=== PATIENT | female | born 1945 | race Caucasian/White ===

== ENCOUNTER → 2019-07-03 | Outpatient (CLI) | payer MEDICARE, OTHER ==
[~2019-07-03] MED LIST: Bupropion Xl150 MG PO; CARV3.125 PO; Cleocin HCl150 MG PO; IRON150C PO; LORA1 PO; MORP15ER PO; VITAMIN D-32000 UNI1 PO
[2019-07-03 15:49] LABS: Bilirubin, Urine Neg (Neg); Blood, Urine 2+ (Neg); Glucose Qualitative, Urine 1+ (Neg); Ketones, Urine Neg (Neg); Leukocyte Esterase, Urine 3+ (Neg); Nitrite, Urine Pos (Neg); Protein, Urine 1+ (Neg); Specific Gravity, Urine 1.015 (1.003-1.022); Urobilinogen, Urine NORM (Normal)
[2019-07-03 16:09] LABS: Appearance, Urine Cloudy (Clear); Color, Urine Yellow (P-Yellow); White Blood Cells, Urine TNTC /hpf (0-5)
[2019-07-03 16:10] LABS: Bacteria Many /hpf; Renal Epithelial Few /hpf (0-Rare); Squamous Epithelial Cells Few /hpf (Few); Transitional Epithelial Cells Few /hpf (0-Rare)
== END | disposition home or self-care (01) ==
LOC: LAB 12:55 → LAB SHORT 12:55
PROVIDERS: Nurse Practitioner Family
DX: N39.0 Urinary tract infection, site not specified (principal)
CPT/HCPCS: 81001; 87077; 87086; 87186

== ENCOUNTER → 2020-04-24 | Outpatient (CLI) | payer MEDICARE, OTHER ==
[~2020-04-24] MED LIST changes: +ALBU2.5V5; +ALBU90OI; +ATORVASTATIN CA80 M1 PO; +Aspir 8181 MG PO; +FURO20 PO; +METF500 PO; +MORP30 PO; +MORPHINE PO; +OXYC5 PO; +PANTOPRAZOLE SO40 M1 PO; +PRINIVIL5 M1 PO; +SALM50IP INH; +SERT25 PO
[2020-04-25 17:26] LABS: Appearance, Urine Cloudy (Clear); Bilirubin, Urine Neg (Neg); Blood, Urine 5+ (Neg); Color, Urine Yellow (P-Yellow); Glucose Qualitative, Urine Neg (Neg); Ketones, Urine 1+ (Neg); Leukocyte Esterase, Urine 3+ (Neg); Nitrite, Urine Pos (Neg); Protein, Urine 4+ (Neg); Source, Urine Clean Catch; Urobilinogen, Urine NORM (Normal)
[2020-04-25 17:48] LABS: Bacteria Many /hpf; Red Blood Cells, Urine 50-100 /hpf (0-2); Squamous Epithelial Cells Few /hpf (Few); White Blood Cells, Urine TNTC /hpf (0-5)
== END | disposition home or self-care (01) ==
LOC: LAB 23:30
PROVIDERS: Nurse Practitioner Family
DX: R30.0 Dysuria (principal)
CPT/HCPCS: 81001; 87077; 87086; 87186

== ENCOUNTER → 2020-05-17 | Outpatient (CLI) | payer MEDICARE, OTHER ==
[2020-05-17 12:03] LABS: Source, Urine Clean Catch
[2020-05-17 14:33] LABS: Appearance, Urine Cloudy (Clear); Bilirubin, Urine Neg (Neg); Blood, Urine 4+ (Neg); Color, Urine Yellow (P-Yellow); Glucose Qualitative, Urine Neg (Neg); Ketones, Urine 1+ (Neg); Leukocyte Esterase, Urine 3+ (Neg); Nitrite, Urine Pos (Neg); Protein, Urine 3+ (Neg); Specific Gravity, Urine 1.015 (1.003-1.022); Urobilinogen, Urine 2+ (Normal)
[2020-05-17 14:58] LABS: Bacteria Many /hpf; Red Blood Cells, Urine 25-50 /hpf (0-2); Squamous Epithelial Cells Rare /hpf (Few); White Blood Cells, Urine TNTC /hpf (0-5)
== END | disposition home or self-care (01) ==
LOC: LAB SHORT 10:10
PROVIDERS: Nurse Practitioner Family
DX: N39.0 Urinary tract infection, site not specified (principal)
CPT/HCPCS: 81001; 87077; 87086; 87186

== ENCOUNTER 2020-06-13 06:58 | Day surgery (SDC) | payer MEDICARE, OTHER ==
[~2020-06-13] VITALS: Ht 162.6 cm; Wt 77.8 kg
[~2020-06-13 06:58] MED LIST changes: -ALBU2.5V5; -MORP30 PO
--- NOTE | 2020-06-13 07:39 | NUR ---
History, Chart, Medications and Allergies reviewed before start of procedure. Patient confirms NPO status and agrees with scheduled surgery. Patient States Post-Procedure ride home has been arranged with her son, Brandon.
[2020-06-13] MEDS ORDERED: ALBU2.5V5 (07:46)
[2020-06-13] MEDS ORDERED: SERT25 PO (07:46)
[2020-06-13] MEDS ORDERED: MORP30 PO (07:50)
--- NOTE | 2020-06-13 10:28 | NUR ---
Dressing to procedure site clean, dry, intact with no visible drainage, swelling, erythema or bruising noted.
--- NOTE | 2020-06-13 10:51 | NUR ---
Discharge instructions reviewed with patient. Patient verbalizes understanding. Copy given to patient to take home. Patient States Post-Procedure ride home has been arranged. Discharged via wheelchair to private car for ride home.
== END 2020-06-13 10:52 | disposition home or self-care (01) ==
LOC: ORSCMMR 06:58 → ORD 08:30 → ORSCMMR 10:52
PROVIDERS: Surgery
PROC: 05HM33Z Insertion of Infusion Device into Right Internal Jugular Vein, Percutaneous Approach (ICD-10-PCS; principal; 2020-06-13 08:30)
PROC: B5131ZA Fluoroscopy of Right Jugular Veins using Low Osmolar Contrast, Guidance (ICD-10-PCS; principal; 2020-06-13 08:30)
DX: C20 Malignant neoplasm of rectum (principal); I10 Essential (primary) hypertension; I25.10 Atherosclerotic heart disease of native coronary artery without angina pectoris; J44.9 Chronic obstructive pulmonary disease, unspecified; Z87.891 Personal history of nicotine dependence; Z99.81 Dependence on supplemental oxygen; E11.9 Type 2 diabetes mellitus without complications; E78.00 Pure hypercholesterolemia, unspecified; Z79.899 Other long term (current) drug therapy; Z79.84 Long term (current) use of oral hypoglycemic drugs
CPT/HCPCS: 77001; 82947; C1788; J0690; J1642; J2250; J2704; J3010; J7120

== ENCOUNTER → 2020-07-06 | Outpatient (CLI) | payer MEDICARE, OTHER ==
[~2020-07-06] MED LIST changes: +ALBU2.5V5; +MORP30 PO
[2020-07-06 10:11] LABS: Source, Urine Clean Catch
[2020-07-06 12:49] LABS: Appearance, Urine Clear (Clear); Bilirubin, Urine Neg (Neg); Blood, Urine 1+ (Neg); Color, Urine Yellow (P-Yellow); Glucose Qualitative, Urine Neg (Neg); Ketones, Urine Neg (Neg); Leukocyte Esterase, Urine Neg (Neg); Nitrite, Urine Neg (Neg); Protein, Urine Neg (Neg); Urobilinogen, Urine NORM (Normal); pH, Urine 6.5 (5.0-8.0)
[2020-07-06 12:59] LABS: White Blood Cells, Urine 0-2 /hpf (0-5)
[2020-07-06 13:00] LABS: Bacteria Rare /hpf; Squamous Epithelial Cells Rare /hpf (Few)
== END | disposition home or self-care (01) ==
LOC: LAB SHORT 10:09 → LAB 10:09
PROVIDERS: Nurse Practitioner Family
DX: N39.0 Urinary tract infection, site not specified (principal)
CPT/HCPCS: 81001

== ENCOUNTER 2020-09-30 16:08 | Emergency (ER) | payer MEDICARE, OTHER ==
[~2020-09-30] VITALS: Ht 154.9 cm; Wt 74.4 kg
[2020-09-30 16:47] LABS: BASOPHILS ABSOLUTE AUTO 0.01 K/mm3 (0.00-0.23); BASOPHILS PERCENT AUTO 1 % (0-2); EOSINOPHILS ABSOLUTE AUTO 0.14 K/mm3 (0.00-0.68); EOSINOPHILS PERCENT AUTO 6 % (0-6); Hematocrit 26.5 % (33.0-51.0); Hemoglobin 8.5 g/dL (11.5-16.0); IMMATURE GRAN ABSOLUTE AUTO 0.02 K/mm3 (0.00-0.10); IMMATURE GRAN PERCENT AUTO 1 % (0-1); LYMPHOCYTES ABSOLUTE AUTO 0.58 K/mm3 (0.84-5.20); LYMPHOCYTES PERCENT AUTO 27 % (21-46); MONOCYTES ABSOLUTE AUTO 0.33 K/mm3 (0.16-1.47); MONOCYTES PERCENT AUTO 15 % (4-13); Mean Corpuscular HGB Conc 32.1 g/dL (31.5-36.5); Mean Corpuscular Volume 100 fL (80-100); Mean Platelet Volume 10.3 fL (9.1-12.4); NEUTROPHILS PERCENT AUTO 51 % (41-73); Platelet Count 160 K/mm3 (150-400); RDW Coefficient Variation 16.7 % (11.7-14.2); RDW Standard Deviation 60.5 fL (35.1-46.3); Red Blood Cell Count 2.66 M/mm3 (3.80-5.20); White Blood Cell Count 2.18 K/mm3 (4.00-11.30)
[2020-09-30 17:04] LABS: Alanine Aminotransfer (ALT/SGP 29 U/L (12-78); Albumin, Blood 3.1 g/dL (3.4-5.0); Albumin/Globulin Ratio 0.8 (0.8-1.8); Alk Phos 70 U/L (50-136); Anion Gap 4 mmol/L (6-16); Aspartate Aminotrans (AST/SGOT 34 U/L (12-37); Blood Urea Nitrogen 14 mg/dL (8-24); Bun/Creatinine Ratio 15.9 (12.0-20.0); CO2, Blood 29 mmol/L (21-32); Calcium, Blood 9.1 mg/dL (8.5-10.1); Chloride, Blood 107 mmol/L (98-108); Creatinine, Blood 0.88 mg/dL (0.40-1.00); Globulin, Blood 3.8 g/dL (2.2-4.0); Glomerular Filtration Rate >60 (60-); Glucose, Blood 149 mg/dL (70-99); Potassium, Blood 4.3 mmol/L (3.5-5.5); Sodium, Blood 140 mmol/L (136-145); Total Protein, Blood 6.9 g/dL (6.4-8.2)
== END 2020-09-30 18:00 | disposition home or self-care (01) ==
LOC: ER 16:08
PROVIDERS: Physician Assistant
DX: R10.30 Lower abdominal pain, unspecified (principal); Z79.82 Long term (current) use of aspirin; Z79.84 Long term (current) use of oral hypoglycemic drugs; Z79.899 Other long term (current) drug therapy
CPT/HCPCS: 36415; 80053; 85025; 86850; 86900; 86901; 99283

== ENCOUNTER 2021-03-12 05:38 | Inpatient (IN) | payer MEDICARE, OTHER ==
[~2021-03-12] VITALS: Ht 162.6 cm; Wt 71.3 kg
[2021-03-12 07:09] LABS: BASOPHILS ABSOLUTE AUTO 0.02 K/mm3 (0.00-0.23); BASOPHILS PERCENT AUTO 0 % (0-2); EOSINOPHILS ABSOLUTE AUTO 0.11 K/mm3 (0.00-0.68); EOSINOPHILS PERCENT AUTO 1 % (0-6); Hematocrit 23.2 % (33.0-51.0); Hemoglobin 7.4 g/dL (11.5-16.0); IMMATURE GRAN ABSOLUTE AUTO 0.47 K/mm3 (0.00-0.10); IMMATURE GRAN PERCENT AUTO 3 % (0-1); LYMPHOCYTES ABSOLUTE AUTO 0.32 K/mm3 (0.84-5.20); LYMPHOCYTES PERCENT AUTO 2 % (21-46); MONOCYTES PERCENT AUTO 4 % (4-13); Mean Corpuscular HGB 28.6 pg (26.0-34.0); Mean Corpuscular HGB Conc 31.9 g/dL (31.5-36.5); Mean Corpuscular Volume 90 fL (80-100); NEUTROPHILS ABSOLUTE AUTO 12.46 K/mm3 (1.96-9.15); NEUTROPHILS PERCENT AUTO 90 % (41-73); Platelet Count 247 K/mm3 (150-400); RDW Coefficient Variation 15.2 % (11.7-14.2); RDW Standard Deviation 50.4 fL (35.1-46.3); Red Blood Cell Count 2.59 M/mm3 (3.80-5.20); White Blood Cell Count 13.88 K/mm3 (4.00-11.30)
[2021-03-12 07:27] LABS: Albumin, Blood 1.9 g/dL (3.4-5.0); Albumin/Globulin Ratio 0.4 (0.8-1.8); Bilirubin, Total 1.1 mg/dL (0.1-1.0); Calcium, Blood 8.5 mg/dL (8.5-10.1); Globulin, Blood 4.8 g/dL (2.2-4.0); Potassium, Blood 4.2 mmol/L (3.5-5.5); Total Protein, Blood 6.7 g/dL (6.4-8.2)
[2021-03-12 07:57] LABS: Influenza A, PCR NEGATIVE (NEGATIVE); Influenza B, PCR NEGATIVE (NEGATIVE); Resp Syncytial Virus, PCR NEGATIVE (NEGATIVE); SARS-Cov-2 (COVID-19) PCR, MMC NEGATIVE (NEGATIVE)
[2021-03-12 11:21] LABS: Percent Saturation 12.1 % (15.0-50.0)
--- NOTE | 2021-03-12 12:28 | NUR ---
PT ARRIVED TO THE FLOOR AT APPROX 1145. A/OX4. VITALS TAKEN. COMPLAINTS OF PAIN WHEN BEING TRANSFERED BUT REPORTS DECREASED PAIN WHILE LAYING STILL. R ARM WRAPPED WITH SUKUMAR WRAP AND BRACE. VERY PALE SKIN TONE. 3L O2 SATING AT 95%.
--- NOTE | 2021-03-12 18:10 | NUR ---
SHIFT SUMMARY SINCE ARRIVAL TO THE FLOOR PT REMAINS A/O AND HAS SINCE GOTTEN 1UN OF PRBC. VITAL SIGNS REMAIN STABLE. PAIN OF R ULNER FX AND R HIP FX BEING TREATED PER EMAR. O2 SAT 96-98% ON 3L, NO SOB OR CHEST PAIN REPORTED. PT RESTING COMFORTABLY, WILL REPORT TO ONCOMING RN.
[2021-03-13 04:28] LABS: BASOPHILS ABSOLUTE AUTO 0.03 K/mm3 (0.00-0.23); BASOPHILS PERCENT AUTO 0 % (0-2); EOSINOPHILS ABSOLUTE AUTO 0.04 K/mm3 (0.00-0.68); EOSINOPHILS PERCENT AUTO 0 % (0-6); Hematocrit 28.8 % (33.0-51.0); Hemoglobin 9.3 g/dL (11.5-16.0); IMMATURE GRAN ABSOLUTE AUTO 0.54 K/mm3 (0.00-0.10); IMMATURE GRAN PERCENT AUTO 4 % (0-1); LYMPHOCYTES ABSOLUTE AUTO 0.47 K/mm3 (0.84-5.20); LYMPHOCYTES PERCENT AUTO 3 % (21-46); MONOCYTES ABSOLUTE AUTO 0.42 K/mm3 (0.16-1.47); MONOCYTES PERCENT AUTO 3 % (4-13); Mean Corpuscular HGB 28.1 pg (26.0-34.0); Mean Corpuscular HGB Conc 32.3 g/dL (31.5-36.5); Mean Corpuscular Volume 87 fL (80-100); Mean Platelet Volume 9.7 fL (9.1-12.4); NEUTROPHILS ABSOLUTE AUTO 12.76 K/mm3 (1.96-9.15); NEUTROPHILS PERCENT AUTO 90 % (41-73); Platelet Count 313 K/mm3 (150-400); RDW Coefficient Variation 14.7 % (11.7-14.2); RDW Standard Deviation 47.6 fL (35.1-46.3); Red Blood Cell Count 3.31 M/mm3 (3.80-5.20); White Blood Cell Count 14.26 K/mm3 (4.00-11.30)
[2021-03-13 04:47] LABS: Anion Gap 9 mmol/L (6-16); Blood Urea Nitrogen 34 mg/dL (8-24); Bun/Creatinine Ratio 41.9 (12.0-20.0); CO2, Blood 21 mmol/L (21-32); Calcium, Blood 8.6 mg/dL (8.5-10.1); Chloride, Blood 106 mmol/L (98-108); Creatinine, Blood 0.81 mg/dL (0.40-1.00); Glomerular Filtration Rate >60 (60-); Glucose, Blood 176 mg/dL (70-99); Potassium, Blood 4.5 mmol/L (3.5-5.5); Sodium, Blood 136 mmol/L (136-145)
--- NOTE | 2021-03-13 06:41 | NUR ---
PT IS A/OX3. ABLE TO MAKE HER NEEDS KNOWN. NO EVENTS OVER NIGHT. PT HAS BEEN NPO SINCE [place]. OXYGEN AT 4L PER NC. PER PT, HER BASELINE AT HOME IS 3L PER NC. EXP WHEEZING NOTED. PRN NEB TX'S PER RT. NOW ON TELE: SR. HAD LARGE LOOSE BM INCNOTINENCE DURING NOC. LAMB PATENT, DRAINING CLEAR/YELLOW URINE, SECURED TO LT MEDIAL THIGHT. DRNG BAG TO GRAVITY AND OFF FLOOR. RT CHEST PORT IS NOT ACCESSED. PIV TO LT WRIST PATENT, PV TO LAC PATENT. MEDICATED FOR PAIN WITH PRN PERCOCET, TYLENOL AND FENTANYL. REPOSITIONING IS VERY PAINFUL FOR PT.
[2021-03-13 08:52] LABS: International Normalized Ratio 1.12; Prothrombin Time Results 11.7 Sec (9.7-11.5)
--- NOTE | 2021-03-13 12:13 | NUR ---
PT TO OR AT THIS TIME. DR. COLIN TO CONSULT WITH PT AFTER SHE ARRIVES TO DAY SURGERY.
--- NOTE | 2021-03-13 12:46 | NUR ---
22G IN L WRIST D/C'D, DRESSING APPLIED.
--- NOTE | 2021-03-13 14:51 | NUR ---
03/13/21 1451 Thao Mayo RECTAL TUBE PLACED 1400 BY NILAY PEOPLES
--- NOTE | 2021-03-13 18:34 | NUR ---
SHIFT SUMMARY PT ARRIVED FROM PACU VIA BED. PT WAS AWAKE AND A&O X4 UPON ARRIVAL. PT C/O PAIN MINIMALLY RELIEVED BY MEDICATION GIVEN IN RECOVERY. PT WAS TACHYPNEIC (RR30) ON ARRIVAL ON 5L NC WITH SpO2 95%, DENIED SOB OR CHEST PAIN. LUNG SOUNDS WERE DIMINISHED ACROSS ALL GARCIA. SURGICAL SITE DRESSING X2 WERE CLEAN DRY AND INTACT. VSS.
--- NOTE | 2021-03-13 22:39 | NUR ---
TOOK OVER CARE AT 1845 PATIENT ALERT AND ORIENTATED, SLOW TO RESPOND, ABLE TO MAKE NEEDS KNOWN, C/O OF PAIN IN RIGHT INGUINAL AREA AND RUQ ABDOMINAL, NOTED SOME SOB AND REQUESTED A BREATHING TREATMENT AT SHIFT CHANGE WITH GOOD RESOLVE, PATIENT HAS RIGHT LEG/ RIGHT ARM SPLINTE ELEVATED PER ORDERS, NOTED LAMB CATHETER IN PLACE, ORDERS TO BE DC'D WILL DC THIS SHIFT, RECTAL TUBE IN PLACE NO NOTED DRAINAGE IN BAG AND/OR TUBING THERE IS AN ORDER TO COLLECT STOOL SAMPLE PATIENT HAS HAD NO STOOL NOTED SINCE BEFORE SURGERY. PATIENT PLACE ON PRECAUTIONS AWAITING DC OF SAMPLE AND/OR RESULTS ONCE COLLECTED. PATIENT C/O OF PAIN 12/27 JUST RECEIVED PAIN MEDICATION NO PAIN MEDS DUE UNTIL 2252, WHEN CHECKING ON PATIENT SHE IS RESTING COMFORTABLY AND SLEEPING UPON ENTERING THE ROOM. WILL CONTINUE TO MONITOR THROUGHOUT THE SHIFT.
[2021-03-14 03:36] LABS: BASOPHILS ABSOLUTE AUTO 0.05 K/mm3 (0.00-0.23); BASOPHILS PERCENT AUTO 0 % (0-2); EOSINOPHILS PERCENT AUTO 0 % (0-6); Hematocrit 29.3 % (33.0-51.0); Hemoglobin 9.3 g/dL (11.5-16.0); IMMATURE GRAN ABSOLUTE AUTO 0.63 K/mm3 (0.00-0.10); IMMATURE GRAN PERCENT AUTO 4 % (0-1); LYMPHOCYTES ABSOLUTE AUTO 0.75 K/mm3 (0.84-5.20); LYMPHOCYTES PERCENT AUTO 5 % (21-46); MONOCYTES ABSOLUTE AUTO 0.68 K/mm3 (0.16-1.47); MONOCYTES PERCENT AUTO 5 % (4-13); Mean Corpuscular HGB Conc 31.7 g/dL (31.5-36.5); Mean Corpuscular Volume 88 fL (80-100); Mean Platelet Volume 9.7 fL (9.1-12.4); NEUTROPHILS ABSOLUTE AUTO 13.07 K/mm3 (1.96-9.15); NEUTROPHILS PERCENT AUTO 86 % (41-73); Platelet Count 328 K/mm3 (150-400); RDW Standard Deviation 48.8 fL (35.1-46.3); Red Blood Cell Count 3.32 M/mm3 (3.80-5.20); White Blood Cell Count 15.18 K/mm3 (4.00-11.30)
[2021-03-14 03:57] LABS: Albumin, Blood 1.8 g/dL (3.4-5.0); Albumin/Globulin Ratio 0.4 (0.8-1.8); Bilirubin, Total 0.7 mg/dL (0.1-1.0); Bun/Creatinine Ratio 42.8 (12.0-20.0); Calcium, Blood 8.6 mg/dL (8.5-10.1); Creatinine, Blood 0.98 mg/dL (0.40-1.00); Globulin, Blood 4.7 g/dL (2.2-4.0); Potassium, Blood 4.4 mmol/L (3.5-5.5); Total Protein, Blood 6.5 g/dL (6.4-8.2)
--- NOTE | 2021-03-14 04:32 | NUR ---
CALLED X 2 AWAITING FOR CALL BACK
--- NOTE | 2021-03-14 05:27 | NUR ---
PER PATIENT WANTS LAMB CATETHER TO REMAIN TOO MUCH PAIN TO GO TO BATHROOM. PATIENT IS HOLDING LEFT SIDE, UNDER BREAST LINE CAN FEEL HARD PROTURSION RETAIL SALES ADVISOR NOTIFIED CHEST XRAY AND AWAITING NEW ORDERS IF ANY.
--- NOTE | 2021-03-14 06:43 | NUR ---
PER VICKIE FARMER TRY TO GIVE PAIN MEDICATION WITH FIRST TORADOL, SECOND FENTANYL, AND THIRD DILAUDID.
--- NOTE | 2021-03-14 17:00 | NUR ---
PT TRANSFER PT TRANSFERRED TO SURGICAL UNIT. REPORT GIVEN TO SURGICAL FLOOR RN BY BIBIANA Sánchez PT TAKEN BY BED BY THIS RN AND CHAIR PAD MAKER WITH ALL BELONGINGS AND CHART. FAMILY AWARE OF PT TRANSFER. LAMB REMOVED. RECTAL TUBE REMOVED PER PHYSICIAN ORDER.
--- NOTE | 2021-03-14 18:47 | NUR ---
TRANSFER: REPORT RECEIVED FELIX BERNARDO PEELED POTATO INSPECTOR. PT TO UNIT AT ABOUT 1710. UPON ASSESSMENT PT IS A/O, SURGICAL SITES WNL, VSS. PT REPORTED PAIN AND CROSSBOW MAKER GAVE MEDICATION. WILL CTM AND REPORT TO NOC RN.
[2021-03-15 05:00] LABS: BASOPHILS ABSOLUTE AUTO 0.05 K/mm3 (0.00-0.23); BASOPHILS PERCENT AUTO 0 % (0-2); EOSINOPHILS ABSOLUTE AUTO 0.15 K/mm3 (0.00-0.68); EOSINOPHILS PERCENT AUTO 1 % (0-6); Hematocrit 29.2 % (33.0-51.0); Hemoglobin 9.2 g/dL (11.5-16.0); IMMATURE GRAN ABSOLUTE AUTO 1.15 K/mm3 (0.00-0.10); IMMATURE GRAN PERCENT AUTO 8 % (0-1); LYMPHOCYTES ABSOLUTE AUTO 1.02 K/mm3 (0.84-5.20); LYMPHOCYTES PERCENT AUTO 7 % (21-46); MONOCYTES ABSOLUTE AUTO 0.68 K/mm3 (0.16-1.47); MONOCYTES PERCENT AUTO 5 % (4-13); Mean Corpuscular HGB 27.8 pg (26.0-34.0); Mean Corpuscular HGB Conc 31.5 g/dL (31.5-36.5); Mean Corpuscular Volume 88 fL (80-100); Mean Platelet Volume 9.6 fL (9.1-12.4); NEUTROPHILS ABSOLUTE AUTO 10.92 K/mm3 (1.96-9.15); NEUTROPHILS PERCENT AUTO 78 % (41-73); NRBC ABSOLUTE 0.02 K/mm3 (0.00-0.02); NRBC Auto 0.1 /100 WBC (0.0-0.2); Platelet Count 325 K/mm3 (150-400); RDW Coefficient Variation 14.7 % (11.7-14.2); RDW Standard Deviation 47.4 fL (35.1-46.3); Red Blood Cell Count 3.31 M/mm3 (3.80-5.20); White Blood Cell Count 13.97 K/mm3 (4.00-11.30)
[2021-03-15 05:17] LABS: Bun/Creatinine Ratio 43.3 (12.0-20.0); Creatinine, Blood 0.95 mg/dL (0.40-1.00); Potassium, Blood 4.1 mmol/L (3.5-5.5)
[2021-03-15 05:21] LABS: BAND PERCENT MAN 4 % (0-8); BASOPHILS PERCENT MAN 0 % (0-2); EOSINOPHILS PERCENT MAN 0 % (0-6); LYMPHOCYTES ABSOLUTE MAN 0.69 K/mm3 (0.84-5.20); LYMPHOCYTES PERCENT MAN 5 % (21-46); METAMYELOCYTE ABSOLUTE MAN 0.13 K/mm3 (0.00-0.00); METAMYELOCYTE PERCENT MAN 1 % (0-0); MONOCYTES ABSOLUTE MAN 0.41 K/mm3 (0.16-1.47); MONOCYTES PERCENT MAN 3 % (4-13); NEUTROPHILS ABSOLUTE MAN 12.71 K/mm3 (1.96-9.15); SEG NEUTROPHILS PERCENT MAN 87 % (41-73); TOTAL CELLS COUNTED 100
--- NOTE | 2021-03-15 07:12 | NUR ---
PT IS A/OX3. IS RESIGHINI. ABLE TO MAKE HER NEEDS KNOWN. VERY PLEASANT AND COOPERTATIVE WITH STAFF AND HER CARE BUT ADMITS IS FEELING DOWN AND DEPRESSED. NO EVENTS OVER NIGHT. VOIDING WELL, WEARS ADULT DISPOSABLE BRIEFS. DENIED ANY N/V. NOT PASSING GAS, YET. OXYGEN AT 4L PER NC. PRN NEB TX PER RT. RT HIP W/TWO AQUACEL DRSGS, BOTH CDI. RUE IN SPLINT/SUKUMAR WRAP. NO NUMBNESS OR TINGLING TO RLE RUE. ABLE TO WIGGEL RT FINGERS AND RT TOES WELL. TTWB TO RLE. RT CHEST PORT IS NOT ACCESSED. PIV TO LT WRIST AND LAC. PAIN MANAGED WELL WITH PRN MEDS PER EMAR.
[2021-03-15 12:19] LABS: SARS-Cov-2 (COVID-19) PCR, MMC NEGATIVE (NEGATIVE)
--- NOTE | 2021-03-15 13:55 | NUR ---
REPORT CALLED TO NURSE AT [facility] AT THIS TIME. NO SIGNS OR SYMPTOMS ACUTE DISTRESS NOTED. MEDICATED WITH PAIN MED 1330. SON AT BESIDE VISITING.
== END 2021-03-15 14:40 | DRG 480 ==
LOC: ER 05:38 → SURS 10:55 → PCU 10:55 → SURS 11:34 → PCU 03-13 15:20 → SURS 03-14 16:38
PROVIDERS: Emergency Medicine; Internal Medicine; Orthopaedic Surgery; ADMIT Family Medicine
PROC: 3E02340 Introduction of Influenza Vaccine into Muscle, Percutaneous Approach (ICD-10-PCS; 2021-03-12)
PROC: 0QS606Z Reposition Right Upper Femur with Intramedullary Internal Fixation Device, Open Approach (ICD-10-PCS; principal; 2021-03-13 12:30)
DX: S72.141A Displaced intertrochanteric fracture of right femur, initial encounter for closed fracture (principal); J96.01 Acute respiratory failure with hypoxia; E43 Unspecified severe protein-calorie malnutrition; J98.11 Atelectasis; W18.30XA Fall on same level, unspecified, initial encounter; I10 Essential (primary) hypertension; K21.9 Gastro-esophageal reflux disease without esophagitis; E11.9 Type 2 diabetes mellitus without complications; Z23 Encounter for immunization; Z66 Do not resuscitate; Z90.49 Acquired absence of other specified parts of digestive tract; Z98.890 Other specified postprocedural states; J44.9 Chronic obstructive pulmonary disease, unspecified; Z88.8 Allergy status to other drugs, medicaments and biological substances; Z88.6 Allergy status to analgesic agent; Z79.899 Other long term (current) drug therapy; Z79.82 Long term (current) use of aspirin; Z87.891 Personal history of nicotine dependence; Z68.25 Body mass index [BMI] 25.0-25.9, adult
CPT/HCPCS: 0241U; 29125; 36415; 36430; 51702; 70450; 71045; 72125; 73090; 73110; 73502; 80048; 80053; 82607; 82728; 82746; 83540; 83550; 83880; 85025; 85610; 85730; 86850; 86900; 86901; 86923; 93005; 93010; 94640; 94760; 96374; 96375; 96376; 97110; 97162; 97166; 97530; 99285-25; A9270; C1713; C1769; J0690; J1100; J1170; J1885; J2370; J2405; J2704; J2916; J3010; J7120; P9016; U0004

== ENCOUNTER → 2021-04-14 | Outpatient (CLI) | payer MEDICARE, OTHER ==
[2021-04-14 12:32] LABS: Hematocrit 23.4 % (33.0-51.0); Hemoglobin 7.2 g/dL (11.5-16.0); Mean Corpuscular HGB 28.6 pg (26.0-34.0); Mean Corpuscular HGB Conc 30.8 g/dL (31.5-36.5); Mean Corpuscular Volume 93 fL (80-100); Mean Platelet Volume 10.3 fL (9.1-12.4); Platelet Count 120 K/mm3 (150-400); RDW Coefficient Variation 15.3 % (11.7-14.2); RDW Standard Deviation 52.4 fL (35.1-46.3); Red Blood Cell Count 2.52 M/mm3 (3.80-5.20)
== END | disposition home or self-care (01) ==
LOC: LAB SHORT 12:28 → LAB 12:28
PROVIDERS: Internal Medicine
DX: J44.9 Chronic obstructive pulmonary disease, unspecified (principal); E11.9 Type 2 diabetes mellitus without complications; R53.1 Weakness
CPT/HCPCS: 85027

== ENCOUNTER → 2021-06-09 | Outpatient (CLI) | payer MEDICARE, OTHER | LOC: LAB SHORT 15:04 | DX: R82.998 Other abnormal findings in urine (principal) | CPT/HCPCS: 87086 ==

== ENCOUNTER 2021-08-22 09:58 | Day surgery (SDC) | payer MEDICARE, OTHER ==
[~2021-08-22] VITALS: Ht 162.6 cm; Wt 66.8 kg
[~2021-08-22 09:58] MED LIST changes: +ALBU90OI INH; +CAPE500 PO; +FERROUS GLUCON324 M7 PO; +MECL12.5 PO; +MORPHINE SULFA100 MG PO
--- NOTE | 2021-08-22 12:29 | NUR ---
08/22/21 1229 PILLO FLEMING THIS RN NOTED A BLEEDING AND REDDENDED AREA ON PT'S BUTTOCKS DURING PERIOP. PT STATED SHE WAS AT [facility] AFTER SHE FELL AND BROKE HER HIP, HOWEVER PT HAS BEEN HOME FOR ABOUT 2 MONTHS PER PT. BUTTOCKS AREA CLEANED, LIDOCAINE JELLY AND BARRIER CREAM APPLIED. DRESSING APPLIED TO BUTTOCKS BY DR. MENDEZ AFTER PROCEDURE WAS COMPLETED. PTS FAMILY MADE AWARE OF REDDENED AND BLEEDING AREA.
== END 2021-08-22 12:10 | disposition home or self-care (01) ==
LOC: ORSCSDS 09:58
PROVIDERS: Surgery
PROC: 0DBP8ZX Excision of Rectum, Via Natural or Artificial Opening Endoscopic, Diagnostic (ICD-10-PCS; principal; 2021-08-22 11:15)
DX: K62.5 Hemorrhage of anus and rectum (principal); Z85.048 Personal history of other malignant neoplasm of rectum, rectosigmoid junction, and anus; D12.8 Benign neoplasm of rectum; I10 Essential (primary) hypertension; J44.9 Chronic obstructive pulmonary disease, unspecified; Z87.891 Personal history of nicotine dependence; E78.5 Hyperlipidemia, unspecified; I50.9 Heart failure, unspecified; Z79.84 Long term (current) use of oral hypoglycemic drugs; Z79.899 Other long term (current) drug therapy
CPT/HCPCS: 82947; 88305; A9270; J2704; J7120

== ENCOUNTER 2021-11-13 12:27 | Inpatient (IN) | payer MEDICARE, OTHER ==
--- NOTE | 2021-11-12 21:50 | NUR ---
1ST UNIT PRBC'S VERIFIED W/2ND RN (CECILE ADAME) AND COMMENCED AT 2146. PT AWARE OF S/S ADVERSE REACTION AND KNOWS TO ALERT STAFF PRN. VSS/AFEBRILE, NO S/S DISTRESS.
[~2021-11-13] VITALS: Ht 162.6 cm; Wt 63.7 kg
[2021-11-13 13:26] LABS: BASOPHILS ABSOLUTE AUTO 0.02 K/mm3 (0.00-0.23); BASOPHILS PERCENT AUTO 0 % (0-2); EOSINOPHILS ABSOLUTE AUTO 0.06 K/mm3 (0.00-0.68); EOSINOPHILS PERCENT AUTO 1 % (0-6); Hematocrit 23.3 % (33.0-51.0); IMMATURE GRAN ABSOLUTE AUTO 0.06 K/mm3 (0.00-0.10); IMMATURE GRAN PERCENT AUTO 1 % (0-1); LYMPHOCYTES PERCENT AUTO 7 % (21-46); MONOCYTES ABSOLUTE AUTO 0.59 K/mm3 (0.16-1.47); MONOCYTES PERCENT AUTO 6 % (4-13); Mean Corpuscular HGB 25.9 pg (26.0-34.0); Mean Corpuscular Volume 86 fL (80-100); Mean Platelet Volume 9.5 fL (9.1-12.4); NEUTROPHILS ABSOLUTE AUTO 8.23 K/mm3 (1.96-9.15); NEUTROPHILS PERCENT AUTO 85 % (41-73); Platelet Count 248 K/mm3 (150-400); RDW Coefficient Variation 16.3 % (11.7-14.2); RDW Standard Deviation 50.9 fL (35.1-46.3); White Blood Cell Count 9.66 K/mm3 (4.00-11.30)
[2021-11-13 13:50] LABS: Albumin/Globulin Ratio 0.5 (0.8-1.8); Bilirubin, Total 0.4 mg/dL (0.1-1.0); Bun/Creatinine Ratio 31.5 (12.0-20.0); Calcium, Blood 8.7 mg/dL (8.5-10.1); Creatinine, Blood 0.7 mg/dL (0.40-1.00); Globulin, Blood 4.4 g/dL (2.2-4.0); Potassium, Blood 4.8 mmol/L (3.5-5.5); Total Protein, Blood 6.4 g/dL (6.4-8.2)
[2021-11-13 18:36] LABS: SARS-Cov-2 (COVID-19) PCR, MMC NEGATIVE (NEGATIVE)
--- NOTE | 2021-11-13 22:15 | NUR ---
PT TOLERATING TRANSFUSION OF PRBC'S W/O S/S ADVERSE EVENT. WCTM CLOSELY.
--- NOTE | 2021-11-14 01:09 | NUR ---
PT TOLERATED TRANSFUSION OF PRBC'S W/O REACTION OR ADVERSE EVENT. VSS AND AFEBRILE. NS NOW INFUSING AT 75 ML/HR.
--- NOTE | 2021-11-14 04:17 | NUR ---
SUMMARY: PT A/OX4, SPECIFIES NEEDS AND IS PLEASANT AND COOPERATIVE W/CARE. SHE RECIEVED 1 UNIT PRBC'S THIS SHIFT W/O ADVERSE EVENT FOR HGB 7, AM CBC PENDING. SURGICAL CONSULT CALLED TO ANSWERING SERVICE FOR STAGE 4 DECUB COCCYX ULCER. WOUND REMAINS PACKED AND DX IS C/D/I. PT NPO SINCE [place] AND NS INFUSES AT 75 ML/HR. TURN SCHEDULE MAINTAINED AND ATTENDS CHANGED FOR INCONTINENCE PRN. BLE EDEMA PERSISTS, LEGS ELEVATED IN BED. NO ACUTE CHANGES, VSS/AFEBRILE. WCTM AND REPORT TO DAY RN.
[2021-11-14 05:17] LABS: BASOPHILS ABSOLUTE AUTO 0.02 K/mm3 (0.00-0.23); BASOPHILS PERCENT AUTO 0 % (0-2); EOSINOPHILS ABSOLUTE AUTO 0.14 K/mm3 (0.00-0.68); EOSINOPHILS PERCENT AUTO 2 % (0-6); Hematocrit 23.8 % (33.0-51.0); Hemoglobin 7.2 g/dL (11.5-16.0); IMMATURE GRAN ABSOLUTE AUTO 0.12 K/mm3 (0.00-0.10); IMMATURE GRAN PERCENT AUTO 2 % (0-1); LYMPHOCYTES ABSOLUTE AUTO 0.87 K/mm3 (0.84-5.20); LYMPHOCYTES PERCENT AUTO 11 % (21-46); MONOCYTES ABSOLUTE AUTO 0.45 K/mm3 (0.16-1.47); MONOCYTES PERCENT AUTO 6 % (4-13); Mean Corpuscular HGB 25.9 pg (26.0-34.0); Mean Corpuscular HGB Conc 30.3 g/dL (31.5-36.5); Mean Corpuscular Volume 86 fL (80-100); Mean Platelet Volume 9.4 fL (9.1-12.4); NEUTROPHILS ABSOLUTE AUTO 6.12 K/mm3 (1.96-9.15); NEUTROPHILS PERCENT AUTO 79 % (41-73); Platelet Count 232 K/mm3 (150-400); RDW Coefficient Variation 15.8 % (11.7-14.2); RDW Standard Deviation 48.7 fL (35.1-46.3); Red Blood Cell Count 2.78 M/mm3 (3.80-5.20); White Blood Cell Count 7.72 K/mm3 (4.00-11.30)
--- NOTE | 2021-11-14 11:45 | NUR ---
THE PATIENT WAS BROUGHT TO DAY SURGERY FOR HER PROCEDURE.
--- NOTE | 2021-11-14 12:49 | NUR ---
11/14/21 1249 Sumaya Nazario NO PREOP ANTIBIOTICS ORDERED PER .
--- NOTE | 2021-11-15 04:25 | NUR ---
SUMMARY: PT A/OX4, CALLS APPROPRIATELY TO SPECIFY NEEDS AND IS PLEASANT AND COOPERATIVE W/CARE. I&D PERFORMED TO STAGE 4 COCCYX WOUND ON DAY SHIFT, DX REMAINS C/D/I AND TURN SCHEDULE MAINTAINED. PUREWIC CATHETER IS PATENT TO SUCTION AND ATTENDS CHANGED PRN. PT CONT'S ON 2L NC FOR SPO2 WNL. FENTANYL RECIEVED PRN FOR TOLERABLE RELIEF OF BACK/BUTTOCKS PAIN BUT HS MS CONTIN WAS HELD FOR SEDATION. NS INFUSES AT 75 ML/HR. NO ACUTE CHANGES, VSS/AFEBRILE. WCTM AND REPORT TO DAY RN.
[2021-11-15 06:20] LABS: BASOPHILS ABSOLUTE AUTO 0.01 K/mm3 (0.00-0.23); BASOPHILS PERCENT AUTO 0 % (0-2); EOSINOPHILS PERCENT AUTO 0 % (0-6); Hematocrit 30.1 % (33.0-51.0); Hemoglobin 9.1 g/dL (11.5-16.0); IMMATURE GRAN ABSOLUTE AUTO 0.14 K/mm3 (0.00-0.10); IMMATURE GRAN PERCENT AUTO 2 % (0-1); LYMPHOCYTES ABSOLUTE AUTO 0.52 K/mm3 (0.84-5.20); LYMPHOCYTES PERCENT AUTO 6 % (21-46); MONOCYTES ABSOLUTE AUTO 0.45 K/mm3 (0.16-1.47); MONOCYTES PERCENT AUTO 5 % (4-13); Mean Corpuscular HGB 25.8 pg (26.0-34.0); Mean Corpuscular HGB Conc 30.2 g/dL (31.5-36.5); Mean Corpuscular Volume 85 fL (80-100); Mean Platelet Volume 9.3 fL (9.1-12.4); NEUTROPHILS ABSOLUTE AUTO 7.85 K/mm3 (1.96-9.15); NEUTROPHILS PERCENT AUTO 88 % (41-73); Platelet Count 265 K/mm3 (150-400); RDW Coefficient Variation 16.9 % (11.7-14.2); RDW Standard Deviation 52.5 fL (35.1-46.3); Red Blood Cell Count 3.53 M/mm3 (3.80-5.20); White Blood Cell Count 8.97 K/mm3 (4.00-11.30)
[2021-11-15 06:41] LABS: Albumin, Blood 1.9 g/dL (3.4-5.0); Anion Gap 5 mmol/L (6-16); Blood Urea Nitrogen 26 mg/dL (8-24); Bun/Creatinine Ratio 38.5 (12.0-20.0); CO2, Blood 28 mmol/L (21-32); Calcium, Blood 8.6 mg/dL (8.5-10.1); Chloride, Blood 106 mmol/L (98-108); Creatinine, Blood 0.68 mg/dL (0.40-1.00); Glomerular Filtration Rate 91 (60-); Glucose, Blood 210 mg/dL (70-99); Phosphorus, Blood 3.6 mg/dL (2.5-4.9); Potassium, Blood 4.6 mmol/L (3.5-5.5); Sodium, Blood 139 mmol/L (136-145)
--- NOTE | 2021-11-16 06:37 | NUR ---
SHIFT SUMMARY PATIENT ALERT AND ORIENTED. MEDICATED PER EMAR FOR PAIN. GETS DYSPNIC UPON EXERTION. NO ACUTE ISSUES NOTED OVERNIGHT. CALL LIGHT WITHIN REACH. REPORT GIVEN TO ONCOMING RN.
[2021-11-16 17:47] LABS: Vancomycin, Trough 3.1 ug/mL (5.0-10.0)
--- NOTE | 2021-11-16 17:54 | NUR ---
AOX4, CAN MAKE NEEDS KNOWN, COOPERATIVE WITH MEDICATIONS AND CARE. PT IS CURRENTLY BEDREST, BUT CAN STAND PIVOT WITH ASSISTANCE. PT IS USING O2 AT 2L NC D/T DESTAT WHEN SLEEPING. PT HAS STAGE 4 WOUND AT COCCYX, DRESSING CHANGE DONE, CURRENLTY C/D/I. PURWICK IN USE TO KEEP WOUND CLEAN AND DRY. PT IS AWARE OF THE NEED TO URINATE, BUT UNABLE TO HOLD FOR VERY LONG; ATTENDS ALSO IN USE. PT STATES TOLERABLE PAIN LEVEL AND DID NOT REQUEST PRN PAIN MEDS DURING DAY SHIFT; DID RECEVIE SCHEDULED MS CONTIN IN AM. NS INFUSING AT 75 ML/HR; AND SCHEDULED IV ABX. NO ACUTE CHANGES. CALL-LIGHT WITHIN REACH; BED IN LOWEST POSITION.
--- NOTE | 2021-11-17 05:26 | NUR ---
PT IS A/O, [place], INCONTINENT OF BOWEL AND BLADDER. USING PURWICK AT THIS TIME, BEDBOUND; LARGE DECUB ON SACRUM, HEEL PROTECTORS ON. 2L O2 AT BASELINE.
[2021-11-17] MEDS ORDERED: JUVEN PACKET1 EAC3 PO (14:28)
[2021-11-17] MEDS ORDERED: CEFAZOLIN2 GM/50 M3 IV (14:28)
[2021-11-17] MEDS ORDERED: FURO20 PO (14:29)
[2021-11-17] MEDS ORDERED: [UNRECOGNIZED DRUG - OTHER] (14:30)
[2021-11-17] MEDS ORDERED: DOCU100 PO (14:30)
[2021-11-17 14:41] LABS: Influenza A, PCR NEGATIVE (NEGATIVE); Influenza B, PCR NEGATIVE (NEGATIVE); Resp Syncytial Virus, PCR NEGATIVE (NEGATIVE); SARS-Cov-2 (COVID-19) PCR, MMC NEGATIVE (NEGATIVE)
--- NOTE | 2021-11-17 17:10 | NUR ---
PATIENT DISCHARGED TO [facility] Crackles in bases of lungs, +3 pitting edema BLE. assessed patient & ordered Lasix PO. Patient worked with therapy today, got OOB and transferred to chair for meals. Venturamanager set up transportation, pt discharging to SNF today. Powerport accessed & heparin locked. wrote hard script for MS contin 15mg. Called SNF and gave report to Samantha BENAVIDES. Vitals stable, pt left medical floor at 1645.
== END 2021-11-17 16:43 | DRG 981 ==
LOC: ER 12:27 → MEDS 16:39
PROVIDERS: Internal Medicine; Nurse Practitioner Acute Care; Student in an Organized Health Care Education/Training Program; ADMIT Hospitalist
PROC: 30233N1 Transfusion of Nonautologous Red Blood Cells into Peripheral Vein, Percutaneous Approach (ICD-10-PCS; principal; 2021-11-13)
PROC: 0QB10ZZ Excision of Sacrum, Open Approach (ICD-10-PCS; 2021-11-14)
DX: E11.52 Type 2 diabetes mellitus with diabetic peripheral angiopathy with gangrene (principal); L89.154 Pressure ulcer of sacral region, stage 4; C20 Malignant neoplasm of rectum; E87.2 Acidosis; F11.20 Opioid dependence, uncomplicated; M86.8X8 Other osteomyelitis, other site; Z66 Do not resuscitate; D63.8 Anemia in other chronic diseases classified elsewhere; Z51.5 Encounter for palliative care; I10 Essential (primary) hypertension; E11.69 Type 2 diabetes mellitus with other specified complication; B96.20 Unspecified Escherichia coli [E. coli] as the cause of diseases classified elsewhere; B95.61 Methicillin susceptible Staphylococcus aureus infection as the cause of diseases classified elsewhere; Z20.822 Contact with and (suspected) exposure to COVID-19; J44.9 Chronic obstructive pulmonary disease, unspecified; K21.9 Gastro-esophageal reflux disease without esophagitis; G89.29 Other chronic pain; I71.4 Abdominal aortic aneurysm, without rupture; Z90.49 Acquired absence of other specified parts of digestive tract; Z98.890 Other specified postprocedural states; Z92.3 Personal history of irradiation; Z95.828 Presence of other vascular implants and grafts; Z88.8 Allergy status to other drugs, medicaments and biological substances; Z92.21 Personal history of antineoplastic chemotherapy; Z79.82 Long term (current) use of aspirin; Z79.02 Long term (current) use of antithrombotics/antiplatelets; Z79.899 Other long term (current) drug therapy; Z79.51 Long term (current) use of inhaled steroids; Z79.4 Long term (current) use of insulin
CPT/HCPCS: 0241U; 36415; 36430; 72193; 80053; 80069; 80202; 82947; 83605; 83735; 85025; 85651; 86140; 86850; 86900; 86901; 86923; 87040; 87071; 87075; 87077; 87147; 87186; 87205; 94760; 96374-59; 97110; 97161; 97530; 99285-25; A9270; J0690; J1100; J1642; J2185; J2370; J2405; J2704; J2795; J3010; J3370; J7030; J7040; J7060; J7120; P9016; Q9967; U0004

== ENCOUNTER → 2021-12-05 | Day surgery (SDC) | payer MEDICARE, OTHER ==
[~2021-12-05] MED LIST changes: +CEFAZOLIN2 GM/50 M3 IV; +DOCU100 PO; +JUVEN PACKET1 EAC3 PO; +[UNRECOGNIZED DRUG - OTHER]
== END ==
LOC: WOUND 03:13
DX: L89.154 Pressure ulcer of sacral region, stage 4 (principal); M46.28 Osteomyelitis of vertebra, sacral and sacrococcygeal region; C20 Malignant neoplasm of rectum; E11.622 Type 2 diabetes mellitus with other skin ulcer; L98.499 Non-pressure chronic ulcer of skin of other sites with unspecified severity; R77.0 Abnormality of albumin; D50.9 Iron deficiency anemia, unspecified; I71.4 Abdominal aortic aneurysm, without rupture; L59.8 Other specified disorders of the skin and subcutaneous tissue related to radiation; Z87.891 Personal history of nicotine dependence; Z88.8 Allergy status to other drugs, medicaments and biological substances; J44.9 Chronic obstructive pulmonary disease, unspecified; I25.10 Atherosclerotic heart disease of native coronary artery without angina pectoris; I10 Essential (primary) hypertension; Z92.21 Personal history of antineoplastic chemotherapy; Z92.3 Personal history of irradiation; Z86.718 Personal history of other venous thrombosis and embolism
CPT/HCPCS: A9270; G0463

== ENCOUNTER 2021-12-19 01:02 | Day surgery (SDC) | payer MEDICARE, OTHER | END 2021-12-20 00:15 | disposition home or self-care (01) | LOC: WOUND 01:02 | DX: L89.154 Pressure ulcer of sacral region, stage 4 (principal); L59.8 Other specified disorders of the skin and subcutaneous tissue related to radiation; M46.28 Osteomyelitis of vertebra, sacral and sacrococcygeal region; E11.622 Type 2 diabetes mellitus with other skin ulcer; L98.429 Non-pressure chronic ulcer of back with unspecified severity; R77.0 Abnormality of albumin; D50.9 Iron deficiency anemia, unspecified; C20 Malignant neoplasm of rectum; I71.4 Abdominal aortic aneurysm, without rupture; Y84.2 Radiological procedure and radiotherapy as the cause of abnormal reaction of the patient, or of later complication, without mention of misadventure at the time of the procedure | CPT/HCPCS: A9270; G0463 ==

== ENCOUNTER 2021-12-26 00:42 | Day surgery (SDC) | payer MEDICARE, OTHER | END 2021-12-26 23:59 | disposition home or self-care (01) | LOC: WOUND 00:42 | DX: L89.154 Pressure ulcer of sacral region, stage 4 (principal); M46.28 Osteomyelitis of vertebra, sacral and sacrococcygeal region; E11.622 Type 2 diabetes mellitus with other skin ulcer; R77.0 Abnormality of albumin; D50.9 Iron deficiency anemia, unspecified; C20 Malignant neoplasm of rectum; I71.4 Abdominal aortic aneurysm, without rupture; L59.8 Other specified disorders of the skin and subcutaneous tissue related to radiation | CPT/HCPCS: A9270; G0463 ==

== ENCOUNTER 2022-03-09 15:03 | Emergency (ER) | payer MEDICARE, OTHER ==
[~2022-03-09] VITALS: Ht 162.6 cm; Wt 63.5 kg
[~2022-03-09 15:03] MED LIST changes: -SALM50IP INH; +Serevent Disku50 MCG INH; -VITAMIN D-32000 UNI1 PO; +VITAMIN D32000 UNI1 PO
[2022-03-09 17:28] LABS: Source, Urine Clean Catch
[2022-03-09 17:34] LABS: Appearance, Urine Cloudy (Clear); BASOPHILS ABSOLUTE AUTO 0.01 K/mm3 (0.00-0.23); BASOPHILS PERCENT AUTO 0 % (0-2); Bilirubin, Urine Neg (Neg); Blood, Urine 3+ (Neg); Color, Urine Yellow (P-Yellow); EOSINOPHILS ABSOLUTE AUTO 0.13 K/mm3 (0.00-0.68); EOSINOPHILS PERCENT AUTO 2 % (0-6); Glucose Qualitative, Urine Neg (Neg); Hematocrit 23.8 % (33.0-51.0); Hemoglobin 7.3 g/dL (11.5-16.0); IMMATURE GRAN ABSOLUTE AUTO 0.05 K/mm3 (0.00-0.10); IMMATURE GRAN PERCENT AUTO 1 % (0-1); Ketones, Urine Neg (Neg); LYMPHOCYTES ABSOLUTE AUTO 0.72 K/mm3 (0.84-5.20); LYMPHOCYTES PERCENT AUTO 10 % (21-46); Leukocyte Esterase, Urine 3+ (Neg); MONOCYTES PERCENT AUTO 7 % (4-13); Mean Corpuscular HGB 26.6 pg (26.0-34.0); Mean Corpuscular HGB Conc 30.7 g/dL (31.5-36.5); Mean Corpuscular Volume 87 fL (80-100); Mean Platelet Volume 9.5 fL (9.1-12.4); NEUTROPHILS PERCENT AUTO 81 % (41-73); Nitrite, Urine Pos (Neg); Platelet Count 247 K/mm3 (150-400); Protein, Urine 2+ (Neg); RDW Coefficient Variation 15.3 % (11.7-14.2); RDW Standard Deviation 48.8 fL (35.1-46.3); Red Blood Cell Count 2.74 M/mm3 (3.80-5.20); Specific Gravity, Urine 1.015 (1.003-1.022); Urobilinogen, Urine NORM (Normal); White Blood Cell Count 7.41 K/mm3 (4.00-11.30)
[2022-03-09 17:46] LABS: Squamous Epithelial Cells Few /hpf (Few); White Blood Cells, Urine 25-50 /hpf (0-5)
[2022-03-09 17:47] LABS: Bacteria Many /hpf; Granular Casts 0-2 /lpf (0); Hyaline Casts 0-2 /lpf (0-2)
[2022-03-09 17:56] LABS: Albumin, Blood 2.4 g/dL (3.4-5.0); Albumin/Globulin Ratio 0.6 (0.8-1.8); Bilirubin, Total 0.3 mg/dL (0.1-1.0); Bun/Creatinine Ratio 23.7 (12.0-20.0); Calcium, Blood 8.9 mg/dL (8.5-10.1); Creatinine, Blood 0.89 mg/dL (0.40-1.00); Globulin, Blood 4.3 g/dL (2.2-4.0); Potassium, Blood 4.6 mmol/L (3.5-5.5); Total Protein, Blood 6.7 g/dL (6.4-8.2)
== END 2022-03-09 19:06 | disposition home or self-care (01) ==
LOC: ER 15:03
PROVIDERS: Student in an Organized Health Care Education/Training Program
DX: R31.9 Hematuria, unspecified (principal); Z88.6 Allergy status to analgesic agent; Z79.899 Other long term (current) drug therapy; Z79.82 Long term (current) use of aspirin; Z79.84 Long term (current) use of oral hypoglycemic drugs
CPT/HCPCS: 51702; 80053; 81001; 85025; 87077; 87086; 87186; 99283-25

== ENCOUNTER 2022-03-14 14:25 | Observation (INO) | payer MEDICARE, OTHER ==
[~2022-03-14] VITALS: Ht 162.6 cm; Wt 65.8 kg
--- NOTE | 2022-03-14 18:41 | NUR ---
Receiving patient Received report from KENNEDY Sánchez-ED. Patient arrived via stretcher with one belongings bag. First PRBC started in ER and currently infusing @ 150 mLs. A/O, settled to room, oriented to call light, bed in lowest position. Received report patient has chronic juares and has not been changed in ER. Will pass onto night RN. SCD's in room and on.
[2022-03-14] MEDS ORDERED: PROBIOTIC1 EA13 PO (20:38)
[2022-03-14] MEDS ORDERED: PANT40 PO (20:39)
[2022-03-14] MEDS ORDERED: LIQUACEL PO (20:40)
[2022-03-14 23:18] LABS: Hematocrit 26.4 % (33.0-51.0); Hemoglobin 8.5 g/dL (11.5-16.0)
[2022-03-14 23:45] LABS: Percent Saturation 79.4 % (15.0-50.0)
--- NOTE | 2022-03-15 04:13 | NUR ---
SHIFT SUMMARY PT RECEIVED 2 UNITS OF BLOOD PRODUCTS. PT HAS BEEN SLEEPING MOST OF THE NIGHT. PT HAS CALL LIGHT WITHIN HER REACH. PT COMPLAINED OF PAIN EARLIER IN EVENING AND WAS MEDICATED PER EMAR.
[2022-03-15 05:47] LABS: BASOPHILS ABSOLUTE AUTO 0.01 K/mm3 (0.00-0.23); BASOPHILS PERCENT AUTO 0 % (0-2); EOSINOPHILS ABSOLUTE AUTO 0.13 K/mm3 (0.00-0.68); EOSINOPHILS PERCENT AUTO 2 % (0-6); Hematocrit 27.7 % (33.0-51.0); Hemoglobin 8.8 g/dL (11.5-16.0); IMMATURE GRAN ABSOLUTE AUTO 0.07 K/mm3 (0.00-0.10); IMMATURE GRAN PERCENT AUTO 1 % (0-1); LYMPHOCYTES PERCENT AUTO 10 % (21-46); MONOCYTES ABSOLUTE AUTO 0.54 K/mm3 (0.16-1.47); MONOCYTES PERCENT AUTO 8 % (4-13); Mean Corpuscular HGB 27.1 pg (26.0-34.0); Mean Corpuscular HGB Conc 31.8 g/dL (31.5-36.5); Mean Corpuscular Volume 85 fL (80-100); Mean Platelet Volume 8.9 fL (9.1-12.4); NEUTROPHILS ABSOLUTE AUTO 5.31 K/mm3 (1.96-9.15); NEUTROPHILS PERCENT AUTO 79 % (41-73); Platelet Count 248 K/mm3 (150-400); RDW Standard Deviation 46.8 fL (35.1-46.3); Red Blood Cell Count 3.25 M/mm3 (3.80-5.20); White Blood Cell Count 6.76 K/mm3 (4.00-11.30)
[2022-03-15 13:27] LABS: Stool Occult Blood Guaiac 1 Pos (Neg)
--- NOTE | 2022-03-15 18:02 | NUR ---
DISCHARGE NOTE: PT A&O X4, PLEASANT AND COOPERATIVE. PT DISCHARGING HOME ON HOSPICE. PT RECEVIED WOUND CARE AND CATHETER CARE DURING THE SHIFT. PT IV REMOVED WITHOUT DIFFICULTY AND CATHETER TIP INTACTED. PT TRANSPORTED VIA GURNEY BY TRANSPORTATION. PT PERSONAL BELONGINGS PACKED BY YENNI ROSE. PT EDUCATED ON DISCHARGE MEDICATION AND HOSPICE CARE WILL SEE PT 03/16/22 AT HER RESIDENCE.
== END 2022-03-15 15:57 | disposition hospice, home (50) ==
LOC: ER 14:25 → MEDS 14:26
PROVIDERS: ADMIT Family Medicine
DX: D64.9 Anemia, unspecified (principal); I95.9 Hypotension, unspecified; G89.29 Other chronic pain; L89.154 Pressure ulcer of sacral region, stage 4; E11.9 Type 2 diabetes mellitus without complications; I10 Essential (primary) hypertension; I25.10 Atherosclerotic heart disease of native coronary artery without angina pectoris; C20 Malignant neoplasm of rectum; F32.A Depression, unspecified; J44.9 Chronic obstructive pulmonary disease, unspecified; Z96.0 Presence of urogenital implants; K52.9 Noninfective gastroenteritis and colitis, unspecified; Z79.82 Long term (current) use of aspirin; Z79.84 Long term (current) use of oral hypoglycemic drugs; Z88.8 Allergy status to other drugs, medicaments and biological substances; Z87.891 Personal history of nicotine dependence; Z79.891 Long term (current) use of opiate analgesic; Z66 Do not resuscitate; Z95.5 Presence of coronary angioplasty implant and graft
CPT/HCPCS: 36415; 82272; 82607; 82728; 82746; 82947; 83540; 83550; 85014; 85018; 85025; 86850; 86900; 86901; 86923; 94640; 94760; A9270; G0378; J1815; J7030; P9016